=== PATIENT | male | born 1970 | race Caucasian/White ===

== ENCOUNTER 2021-06-06 00:02 | Emergency (ER) | payer OTHER, SELFPAY ==
--- NOTE | ~2021-06-06 | XR_ITS ---
EXAMINATION: XR HUMERUS, RIGHT CLINICAL INFORMATION: Fall pain COMPARISON: None TECHNIQUE: AP and lateral views of the right humerus. FINDINGS: Comminuted fracture of the right femoral neck with mild degree of impaction and angulation. The shoulder was not well visualized on this x-ray, may require correlation with follow-up x-ray of the shoulder for better visualization of the glenoid process. Included adjacent ribs are intact. XR/XR humerus RT IMPRESSION: Comminuted impacted mildly angulated fracture of the right humeral neck. Consider correlation with follow-up x-ray or CT scan of the shoulder recommended to better visualize the glenoid scapula
[2021-06-06 00:10] VITALS: BP 130/80; PULSE 80; O2SAT 98
[2021-06-06 00:14] VITALS: BP 112/76; PULSE 74; RESP 16; TEMP 36.6; O2SAT 95; BMI 25.7
--- NOTE | 2021-06-06 00:33 | ED_ITS ---
HPI - Fall General Chief Complaint: Fall Stated Complaint: FALL,RIGHT ARM PAIN Time Seen by Provider: 06/06/21 00:31 Source: patient Limitations: altered mental status (Intoxication) History of Present Illness HPI Narrative: This is a 51-year-old male who admits that he is an alcoholic, admits intoxication tonight with a false well as marijuana. The patient said he went to go urinate outside because he said the only bathroom inside was occupied, and he thinks he may have slipped on some ice, fell directly on his right side, injuring his right upper arm. Denies hitting his head. Denies any neck pain. Denies any chest wall pain or shortness of breath. Denies abdominal pain. Denies any back injury or injury to his lower extremities. He denies any numbness or tingling or weakness in his right arm or hand. Pain is moderately s evere, achy, worse with any attempted arm movement Related Data Previous Rx's Medication Instructions Recorded ibuprofen 600 mg tablet 600 mg PO Q6H PRN #30 tab 06/06/21 oxycodone-acetaminophen 7.5 mg-325 1 tab PO Q6H PRN #12 tab 06/06/21 mg tablet (Percocet) Allergies Allergy/AdvReac Type Severity Reaction Status Date / Time ragweed pollen [RAGWEED] Allergy Unknown UNKNOWN Verified 06/06/21 00:20 Review of Systems Review of Systems: Yes Other (Somewhat limited by alcohol the skin) Constitutional: Constitutional: Reports no additional constitutional complaint s Eyes: Eyes: Reports no additional eye complaints ENT: Reports system reviewed and no additional complaints, except as documented Cardiovascular: Cardiovascular: Reports no additional cardiovascular complaints Respiratory: Respiratory: Reports no additional respiratory complaints Gastrointestinal: Gastrointestinal: Reports no additional gastrointestinal complaints Musculoskeletal: Musculoskeletal: Reports as per HPI and Denies back pain Neurologic: Reports system reviewed and no additional complaints, except as documented and Denies Sensory deficit (Neuro) Psychiatric: Psychiatric: Reports no additional psychiatric complaints [facility] Social History Social History Advance Directives: No Advance Directives Information Provided: No Physical Exam Vital Signs: Vital Signs: Last Vital Signs Temp 97.8 F 06/06/21 00:14 Pulse 74 06/06/21 00:14 Resp 16 06/06/21 00:14 BP 112/76 06/06/21 00:14 Pulse Ox 95 06/06/21 00:14 Body Mass Index 25.7 Const: General: cooperative, no acute distress and alert Orientation/consciousness: patient oriented x3 HENMT: Head: Yes normal to inspection Eyes: General: appearance normal, both eyes and all related structures Eyelids: Yes eyelids normal Conjunctivae: conjunctivae normal Pupils: Equal, round and reactive pupils present Neck: Neck: Yes normal visual inspection and Yes supple Chest: Chest palpation & inspection: normal inspection of the chest Resp: Effort & Inspection: normal respiratory effort Auscultation: clear to auscultation bilaterally Cardio: Rate: regular rate Rhythm: regular rhythm Heart sounds: S1 normal heart sound present, S2 normal heart sound present, no gallops, no murmurs and no rubs GI: Palpation (GI): Soft to palpation, nontender and Other GI palpation findings present (Non-distended) Auscultation: normal bowel sounds Skin: General skin exam: no rashes or lesions noted Neuro: General: patient oriented x3, no focal motor deficits and CN's II-XI intact bilaterally Cranial nerves: Yes Equal, round and reactive pupils present Cognition (Neuro): normal cognition Motor exam (neuro): 5/5 motor strength present throughout Sensory Exam: No Sensory deficit (Neuro) Extrem: Other: Right clavicle intact, no tenderness over right AC joint, tenderness over right humeral head and right and humerus down to the elbow. Right hand is neurovascular intact General: Yes normal to inspection and Yes no pedal edema Psych: Appearance: grossly normal Affect: normal affect MDM - Fall MDM Narrative Medical decision making narrative: Patient with an impacted fracture of the right humerus at the humeral neck. Patient's right shoulder placed in an immobilizer and patient is being treated with ibuprofen and oxycodone. Patient is intoxicated and does not have a ride home, is going to remain in the ED until the morning when he will be discharged with orthopedic follow-up. Imaging Data Right humerus x-ray: Radiologist's impression: IMPRESSION: Comminuted impacted mildly angulated fracture of the right humeral neck. ? Consider correlation with follow-up x-ray or CT scan of the shoulder recommended to better visualize the glenoid scapula Discharge Plan Discharge Clinical Impression: Fracture of neck of right humerus Patient Disposition: Home, Self-Care Instructions: Arm Fracture in Adults (ED) Prescriptions: New ibuprofen 600 mg tablet 600 mg PO Q6H PRN (Reason: pain) Qty: 30 RF: 0 oxycodone-acetaminophen [Percocet] 7.5-325 mg tablet 1 tab PO Q6H PRN (Reason: pain) Qty: 12 RF: 0 Referrals: Jakob Wu MD [Physician] - 3 days
[2021-06-06] MEDS: Ibuprofen 600 MG TABLET PO (01:17)
[2021-06-06] MEDS: oxyCODONE HCl Immed Release 5 MG TABLET PO (01:18)
--- NOTE | 2021-06-06 01:29 | PC.NURSE ---
pt c/o right arm/shoulder pain after falling tonight. MD in room for eval. Pt medicated as per emar for pain. Pt awake, respirations easy, n/l. skin w/d.
[2021-06-06 02:00] VITALS: RESP 18; O2SAT 98
--- NOTE | 2021-06-06 02:11 | PC.NURSE ---
pt sleeping, wakes to voice and denies complaints at this time. respirations easy, n/l. skin w/d. pt denies complaints,
[2021-06-06 04:00] VITALS: BP 118/74; PULSE 84; RESP 16; O2SAT 97
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
== END 2021-06-06 06:17 | disposition home or self-care (01) ==
PROVIDERS: Emergency Provider Emergency Medicine; PCP Internal Medicine
DX: S42.211A Unspecified displaced fracture of surgical neck of right humerus, initial encounter for closed fracture (principal); F10.20 Alcohol dependence, uncomplicated; W00.0XXA Fall on same level due to ice and snow, initial encounter; Y93.9 Activity, unspecified; Y92.9 Unspecified place or not applicable; Y99.9 Unspecified external cause status; Y90.9 Presence of alcohol in blood, level not specified; Z79.899 Other long term (current) drug therapy
CPT/HCPCS: 73060; 99283; 99284

== ENCOUNTER 2021-06-22 07:17 | Outpatient (REF) | payer MEDICARE, MEDICAID, SELFPAY | END 2021-06-22 07:18 | disposition home or self-care (01) | LOC: HO.HOSX 07:17 | PROVIDERS: Visit Provider Physician Assistant | DX: Z13.89 Encounter for screening for other disorder (principal) ==

== ENCOUNTER 2021-06-24 06:30 | Outpatient (REF) | payer MEDICARE, SELFPAY ==
--- NOTE | ~2021-06-24 | XR_ITS ---
EXAMINATION: XR SHOULDER, RIGHT CLINICAL INFORMATION: Comminuted impacted fracture right humeral neck. Follow-up. COMPARISON: Radiographs right humerus 06/06/2021. TECHNIQUE: Right humerus is imaged in frontal and lateral views. FINDINGS: Proximal right humeral fracture is less distinct. There is no change in alignment. Abundant callus formation is present on the lateral side. The acromioclavicular alignment is normal. No bony destructive process. No dislocation. XR/XR shoulder RT min 2V IMPRESSION: Healing fracture proximal right humerus. No change in alignment.
== END 2021-06-24 06:31 | disposition home or self-care (01) ==
LOC: HO.HOSX 06:30
PROVIDERS: Visit Provider Physician Assistant
DX: S42.201A Unspecified fracture of upper end of right humerus, initial encounter for closed fracture (principal); X58.XXXA Exposure to other specified factors, initial encounter; Y93.9 Activity, unspecified; Y92.9 Unspecified place or not applicable; Y99.9 Unspecified external cause status
CPT/HCPCS: 73030; 99202

== ENCOUNTER 2021-07-22 11:38 | Outpatient (REF) | payer MEDICARE, MEDICAID, SELFPAY | END 2021-07-22 11:39 | disposition home or self-care (01) | LOC: HO.HOSX 11:38 | PROVIDERS: Visit Provider Physician Assistant | DX: Z13.89 Encounter for screening for other disorder (principal) ==

== ENCOUNTER 2023-03-23 21:31 | Inpatient (IN) | payer OTHER, SELFPAY ==
[2023-03-23 21:35] VITALS: BP 164/80; PULSE 66; RESP 17; TEMP 36.4; O2SAT 97; BMI 23.7
--- NOTE | 2023-03-23 21:40 | MHC.CARE ---
Addendum entered by Janeen Frederick 03/23/23 21:51: NOTE PER [facility]; PT IS VOLUNTARY. PT WAS PRESENTED TO [facility] AND ADMISSION IS PENDING FOR 03/24/23. Original Note: [facility] called in expect. Pt is an inpatient bed search. He was assessed via [facility] due to endorsing SI with plan to be shot by police. Pt reported has been threatening peers and getting into arguments. Pt has a history of cannabis, cocaine and alcohol use. Pt is believed to be under the influence. He is on section 12 via [facility].
[2023-03-23 21:58] LABS: MANUAL DIFF FLAG NO
[2023-03-23 22:00] LABS: Appearance Urine Clear; Color Urine Dark Yellow; Glucose Urine UA Negative (Negative); Leukocyte Esterase Urine Trace (Negative); Nitrite Urine Negative (Negative); UMIC TRIGGER UA YES; Urine Blood Negative (Negative); Urine Ketones Trace mg/dL (Negative); Urine Protein 30 (1+) mg/dL (Neg-Trace)
[2023-03-23 22:03] LABS: Basophils Absolute Auto 0.1 X10*3/uL (0.0-0.2); Eosinophils Absolute Auto 0.1 X10*3/uL (0.0-0.4); Eosinophils Percent Auto 1.7 % (0-4); Hematocrit 41.4 % (42.0-52.0); Hemoglobin 14.7 g/dl (14.0-18.0); Imm Gran Abs Auto 0.03 X10*3/uL (0.00-0.03); Imm Gran Pct Auto 0.5 % (0.0-0.4); Lymphocytes Absolute Auto 1.6 X10*3/uL (1.2-4.9); Lymphocytes Percent Auto 28.5 % (20-40); Mean Corpuscular HGB Conc 35.5 g/dl (31.0-36.0); Mean Corpuscular Hemoglobin 34.5 pg (27.0-33.0); Mean Corpuscular Volume 97.2 fL (80.0-98.0); Mean Platelet Volume 10.5 fL (9.4-12.4); Monocytes Absolute Auto 0.8 X10*3/uL (0.1-1.2); Monocytes Percent Auto 14.5 % (2-11); Neutrophils Absolute Auto 3.1 x10*3/uL (2.0-8.3); Neutrophils Percent Auto 53.8 % (45-73); Platelet Count 119 X10*3/uL (160-400); Red Blood Count 4.26 X10*6/uL (4.60-5.80); White Blood Count 5.7 X10*3/uL (4.8-10.8)
[2023-03-23 22:05] LABS: Bacteria Urine None Seen (None Seen); Hyaline Casts Urine 0-2 /LPF (0-2); RBC Urine 0-2 /HPF (0-2); Squamous Epithelial Cell Urine 0-2 /HPF (0-2); WBC Urine 0-5 /HPF (0-5)
[2023-03-23 22:12] LABS: Amphetamine Screen Urine Not Detected (Not Detect); Barbiturates, Urine Not Detected (Not Detect); Benzodiazepines Screen Urine Not Detected (Not Detect); Cannabinoid Screen Urine POSITIVE (Not Detect); Cocaine Screen Urine POSITIVE (Not Detect); Fentanyl, urine Not Detected (Not Detect); Opiate Screen Urine Not Detected (Not Detect); Phencyclidine Screen Urine Not Detected (Not Detect)
[2023-03-23 22:20] LABS: Alanine Aminotransferase 97 U/L (0-40); Albumin Level 4.4 g/dL (3.5-5.0); Alkaline Phosphatase 126 U/L (39-117); Anion Gap 16 (12-20); Aspartate Amino Transferase 122 U/L (5-37); Bilirubin Total 1.7 mg/dL (0.0-1.0); Blood Urea Nitrogen 8 mg/dL (9-16); Calcium 9.3 mg/dL (8.4-10.2); Carbon Dioxide 25 mmol/L (22-29); Chloride 100 mmol/L (96-108); Creatinine Clr Calc Pharmacy 131.4; Estimated Glomerular Filt Rate > 60; Ethanol 74 mg/dL; Glucose Random 86 mg/dL (60-115); Potassium 4.2 mmol/L (3.3-5.1); Sodium 137 mmol/L (135-145); Total Protein 7.4 g/dL (6.5-8.0)
--- NOTE | 2023-03-23 23:56 | ED_ITS ---
HPI - General Adult General Chief complaint: General Medical Stated complaint: From [facility] seeking detox for alcoholism Time Seen by Provider: 03/23/23 23:56 Source: patient Mode of arrival: EMS Limitations: no limitations History of Present Illness HPI narrative: Patient alcoholic and uses cocaine with depression went to [facility] for depression increased suicidal feeling assessed there and sent patient here for inpatient placement Related Data Home Medications Medication Instructions Recorded Confirmed clonazepam 1 mg tablet 1 mg PO TID PRN Anxiety 03/23/23 03/23/23 risperidone 2 mg tablet 2 mg PO BEDTIME 03/23/23 03/23/23 Allergies Allergy/AdvReac Type Severity Reaction Status Date / Time ragweed pollen [RAGWEED] Allergy Unknown UNKNOWN Verified 06/24/21 10:27 Review of Systems 2 Review of Systems: Yes all other systems are reviewed and are negative [facility] Social History Social History Advance Directives: No Advance Directives Information Provided: No Physical Exam ED Vital Signs: Vital Signs - 24 hr 03/23/23 21:35 03/24/23 01:05 Temperature 97.6 F 97.6 F Pulse Rate 66 62 Respiratory Rate 17 16 Blood Pressure 164/80 H 159/84 H Pulse Oximetry 97 95 Oxygen Delivery Method Room Air Room Air BMI result Body Mass Index 23.7 Appearance: Alert. Oriented X3. No acute distress. Eyes: PERRLA, No Nystagmus ENT: Pharynx normal. Oral Mucosa moist Neck: Normal inspection. Neck supple. CVS: Normal heart rate and rhythm. Pulses normal. Respiratory: No respiratory distress. Equal air entry bilateral, no wheezing/rales/rhonchi Abdomen: Soft and nontender. Bowel sounds are present, no mass palpable, no CVA tenderness Skin: Skin warm and dry. Normal skin color. Normal skin turgor. Extremities: No lower extremity edema. No calf tenderness psych: Feel depressed denies current SI or HI or delusions or hallucination Neuro: Oriented X 3. No motor deficit. No sensory deficit.No cerebellar signs , cranial nerves II-XII intact Medications Administered Generic Name Dose Route Start Last Admin Trade Name Freq PRN Reason Stop Dose Admin Lorazepam 2 mg 03/23/23 23:57 03/24/23 00:13 Lorazepam 1 Mg Tablet PO 2 mg RQ4H WHILE AWAKE PRN Administration Alcohol Withdrawal Medical Decision Making Medical Decision Making [facility] Narrative: Patient had alcoholic and cocaine use came from [facility] with depression and SI feeling for inpatient bed placement Lab Data [facility] Lab Attestation statement: I reviewed the patient's lab results. 03/23/23 21:52 03/23/23 21:52 Labs: Lab Results 03/23/23 03/24/23 Range/Units 21:52 00:10 WBC 5.7 (4.8-10.8) X10*3/uL RBC 4.26 L (4.60-5.80) X10*6/uL Hgb 14.7 (14.0-18.0) g/dl Hct 41.4 L (42.0-52.0) % MCV 97.2 (80.0-98.0) fL MCH 34.5 H (27.0-33.0) pg MCHC 35.5 (31.0-36.0) g/dl RDW 14.0 (11.0-16.0) % Plt Count 119 L (160-400) X10*3/uL MPV 10.5 (9.4-12.4) fL Immature Gran % (Auto) 0.5 H (0.0-0.4) % Neut % (Auto) 53.8 (45-73) % Lymph % (Auto) 28.5 (20-40) % [place] % (Auto) 14.5 H (2-11) % Eos % (Auto) 1.7 (0-4) % Baso % (Auto) 1.0 (0-2) % Lymph # (Auto) 1.6 (1.2-4.9) X10*3/uL [place] # (Auto) 0.8 (0.1-1.2) X10*3/uL Eos # (Auto) 0.1 (0.0-0.4) X10*3/uL Baso # (Auto) 0.1 (0.0-0.2) X10*3/uL Abs Immat Gran (auto) 0.03 (0.00-0.03) X10*3/uL Absolute Neuts (auto) 3.1 (2.0-8.3) x10*3/uL Absolute Nucleated RBC 0.000 (0.0-0.012) X10*3/uL Nucleated RBC % (auto) 0.0 (0.0-0.2) /100WBC Sodium 137 (135-145) mmol/L Potassium 4.2 (3.3-5.1) mmol/L Chloride 100 (96-108) mmol/L Carbon Dioxide 25 (22-29) mmol/L Anion Gap 16 (12-20) BUN 8 L (9-16) mg/dL Creatinine 0.70 (0.5-1.4) mg/dL Estim Creat Clear Calc 131.4 Estimated GFR > 60 Random Glucose 86 (60-115) mg/dL Calcium 9.3 (8.4-10.2) mg/dL Total Bilirubin 1.7 H (0.0-1.0) mg/dL AST 122 H (5-37) U/L ALT 97 H (0-40) U/L Alkaline Phosphatase 126 H (39-117) U/L Total Protein 7.4 (6.5-8.0) g/dL Albumin 4.4 (3.5-5.0) g/dL Urine Color Dark Yellow Urine Appearance Clear Urine pH 6.0 (5.0-9.0) Ur Specific [place] 1.020 (1.005-1.025) Urine Protein 30 (1+) H (Neg-Trace) mg/dL Urine Glucose (UA) Negative (Negative) mg/dL Urine Ketones Trace (Negative) mg/dL Urine Blood Negative (Negative) Urine Nitrite Negative (Negative) Ur Leukocyte Esterase Trace H (Negative) Urine RBC 0-2 (0-2) /HPF Urine WBC 0-5 (0-5) /HPF Ur Squamous Epith Cells 0-2 (0-2) /HPF Urine Bacteria None Seen (None Seen) Hyaline Casts 0-2 (0-2) /LPF Urine Opiates Screen Not Detected (Not Detect) Urine Fentanyl Screen Not Detected (Not Detect) Ur Barbiturates Screen Not Detected (Not Detect) Ur Phencyclidine Scrn Not Detected (Not Detect) Ur Amphetamines Screen Not Detected (Not Detect) U Benzodiazepines Scrn Not Detected (Not Detect) Urine Cocaine Screen POSITIVE H (Not Detect) U Marijuana (THC) Screen POSITIVE H (Not Detect) Ethyl Alcohol 74 mg/dL COVID-19 ([facility]) Negative (Negative) COVID-19 Clin Com See Note Discharge Plan Discharge Clinical Impression: Polysubstance abuse, Alcohol abuse, Depression with suicidal ideation Patient Disposition: Still a Patient Prescriptions: No Action clonazepam 1 mg tablet 1 mg PO TID PRN (Reason: Anxiety) risperidone 2 mg tablet 2 mg PO BEDTIME
[2023-03-24] MEDS: LORazepam 1 MG TABLET 2 MG PO (00:13)
[2023-03-24 00:31] LABS: COVID-19 Test Negative (Negative); IDNOW Serial# BCCEAD1C
[2023-03-24 01:05] VITALS: BP 159/84; PULSE 62; RESP 16; TEMP 36.4; O2SAT 95
--- NOTE | 2023-03-24 05:37 | PC.NURSE ---
Patient slept through the night, no distress observed/reported, asymptomatic of actual ETOH withdrawal but Ativan 2 mg PO administered at 0013 for comfort with + effect, behavior non concerning, disposition per [facility] is voluntary inpatient bed search, labs completed/resulted, VSS, will continue to monitor.
--- NOTE | 2023-03-24 09:21 | ECG_ITS ---
Test Reason : check qt interval Blood Pressure : / mmHG Vent. Rate : 054 BPM Atrial Rate : 054 BPM P-R Int : 154 ms QRS Dur : 086 ms QT Int : 490 ms P-R-T Axes : 032 027 054 degrees QTc Int : 464 ms Sinus bradycardia Septal infarct , age undetermined Abnormal ECG When compared with ECG of 13-JAN-2015 14:02, Septal infarct is now Present Referred By: Keyonna Murphy Electronically Signed By:DIONISIO GRIMES
[2023-03-24 09:27] VITALS: BP 142/79; PULSE 53; TEMP 37; O2SAT 98
[2023-03-24 16:03] VITALS: BP 154/81; PULSE 58; RESP 18; TEMP 36.9; O2SAT 97
[2023-03-24] MEDS: LORazepam 1 MG TABLET PO (16:14)
--- NOTE | 2023-03-24 16:24 | PC.NURSE ---
Ciwa score 7. 1mg Lorazapam given PO. Augusto is denying any pain. Appetite good. No behavioral concerns.
[2023-03-24 17:33] VITALS: BP 160/106; PULSE 63; RESP 18; TEMP 36.1; O2SAT 99
--- NOTE | 2023-03-24 18:51 | PC.ADMIT ---
Pt is a 53 year old man coming [place] [facility] [place] verbalizing to staff multiple times about wanting to be shot by police. During admission assessment, pt denied all SI/HI but does report having an extensive mental health history. He reports currently living in a senior living and having lots of outpatient support via providers, therapists and more. He reports feeling safe inside the hospital and out in the community. He was willing and compliant during admission interview. He signed a CV, safety check done by JOAO and Ari Fitzgerald RN. He was able to contract for safety and verbalized being able to confide in staff.
[2023-03-24] MEDS: risperiDONE 2 MG TABLET PO (20:52)
[2023-03-24 21:19] VITALS: BP 165/72; PULSE 71; RESP 18; TEMP 36.7; O2SAT 98
[2023-03-25 08:13] LABS: Estimated Average Glucose 85 mg/dL; Hemoglobin A1c % 4.6 % (<6.0)
[2023-03-25 08:23] LABS: Cholesterol 284 mg/dL (<200); HDL Cholesterol 141 mg/dL (>40); LDL Cholesterol Calculated 129 mg/dL (<100); Magnesium 1.9 mg/dL (1.6-2.6); Triglycerides 72 mg/dL (<150)
[2023-03-25 08:39] LABS: Free T4 (Free Thyroxine) 0.88 ng/dL (0.71-1.85); Thyroid Stimulating Hormone 1.52 uIU/mL (0.32-4.0)
[2023-03-25 08:45] VITALS: BP 155/87; PULSE 87; RESP 18; TEMP 35.8; O2SAT 98
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
[2023-03-25 08:54] LABS: Folate 13.4 ng/mL (> or = 4.0); Vitamin B12 425 pg/mL (200-900)
[2023-03-25] MEDS: Folic Acid 1 MG TABLET PO (08:57)
[2023-03-25] MEDS: Thiamine HCL 100 MG TABLET PO (08:57)
[2023-03-25] MEDS: Multivitamin TABLET 1 TAB PO (08:58)
[2023-03-25] MEDS: LORazepam 1 MG TABLET PO (09:22)
[2023-03-25 18:00] VITALS: BP 128/74; PULSE 85; RESP 16; TEMP 36.6; O2SAT 97
[2023-03-25] MEDS: risperiDONE 2 MG TABLET PO (19:39)
--- NOTE | 2023-03-26 05:47 | P.PNPSI_ITS ---
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 Medication Compliance: Yes Side effects from medications: No Attending Groups: Intermittent Review of Systems Acute medical concerns: No Medical Review of Systems: unchanged Mental Status Exam Mental Status Exam Patient Appearance: Appropriate Patient Orientation: Person, Place, Time and Situation Level of Consciousness: Alert Patient Behavior: Talkative Mood Description: Calm Affect Description: Calm Patient Cognition Impaired: No Ability to Follow Directions: Good Speech Pattern: Spontaneous Speech Memory Description: Episodic Impaired Hallucinations: None Delusions: Not Present Thought Process: Distracted Thought Content: positive for Malone and positive for Circumstantial Depressive Symptoms: Thoughts of /Suicide (denies) Judgement: Good Diagnostics Vital Signs (24Hr): Vital Signs - 24 hr 03/25/23 08:45 03/25/23 18:00 Temperature 96.5 F L 97.8 F Pulse Rate 87 85 Respiratory Rate 18 16 Blood Pressure 155/87 H 128/74 Pulse Oximetry 98 97 Oxygen Delivery Method Room Air Room Air BMI result Body Mass Index 23.7 Labs 03/23/23 21:52 03/23/23 21:52 Labs: Laboratory Results - last 48 hr 03/25/23 07:48 Estimat Average Glucose 85 Hemoglobin A1c % 4.6 Magnesium 1.9 Triglycerides 72 Cholesterol 284 H LDL Cholesterol, Calc 129 H HDL Cholesterol 141 Vitamin B12 425 Folate 13.4 TSH 1.52 Free T4 0.88 Medications Medications Current Medications Acetaminophen (Acetaminophen 325 Mg Tablet) 650 mg PO Q6H PRN PRN Reason: Headache/Pain Mild Scale (1-3) Al Hydroxide/Mg Hydroxide (Magnesium Hydrox/Alum Hydrox 30 Ml Oral.Susp) 30 ml PO Q6H PRN PRN Reason: Heartburn/Nausea Folic Acid (Folic Acid 1 Mg Tablet) 1 mg PO DAILY PRECIOUS Last Admin: 03/25/23 08:57 Dose: 1 mg Hydroxyzine HCl (Hydroxyzine Hcl 25 Mg Tablet) 25 mg PO Q6H PRN PRN Reason: Anxiety Lorazepam (Lorazepam 1 Mg Tablet) 2 mg PO RQ4H WHILE AWAKE PRN PRN Reason: Alcohol Withdrawal Last Admin: 03/24/23 00:13 Dose: 2 mg Lorazepam (Lorazepam 1 Mg Tablet) 1 mg PO Q2H PRN PRN Reason: CIWA 6-10 Last Admin: 03/25/23 09:22 Dose: 1 mg Lorazepam (Lorazepam 1 Mg Tablet) 2 mg PO Q2H PRN PRN Reason: CIWA 11+ Magnesium Hydroxide (Milk Of Magnesia 30 Ml Oral.Susp) 30 ml PO DAILY PRN PRN Reason: Constipation Multivitamins/Vitamin C (Multivitamin Tablet) 1 tab PO DAILY PRECIOUS Last Admin: 03/25/23 08:58 Dose: 1 tab Risperidone (Risperidone 2 Mg Tablet) 2 mg PO BEDTIME PRECIOUS Last Admin: 03/25/23 19:39 Dose: 2 mg Thiamine HCl (Thiamine Hcl 100 Mg Tablet) 100 mg PO DAILY PRECIOUS Last Admin: 03/25/23 08:57 Dose: 100 mg Trazodone HCl (Trazodone Hcl 50 Mg Tablet) 50 mg PO BEDTIME MRX1 PRN PRN Reason: Insomnia Allergies Allergies Allergy/AdvReac Type Severity Reaction Status Date / Time ragweed pollen [RAGWEED] Allergy Unknown UNKNOWN Verified 06/24/21 10:27 Assessment & Plan Assessment & Plan (1) Schizoaffective disorder: Status: Acute Code(s): F25.9 - Schizoaffective disorder, unspecified (2) Alcohol abuse: Status: Acute Code(s): F10.10 - Alcohol abuse, uncomplicated (3) Polysubstance abuse: Status: Acute Code(s): F19.10 - Other psychoactive substance abuse, uncomplicated Plan 03/26: Discontinue CIWA Discontinue Ativan Collateral contact with OP teams TDN for 03/29. Informed Consent: understands Reason for continued inpatient stay Substantial Risk for: rapid decompensation Time Spent With Patient Time: Total time managing care of this patient today ____ minutes.
[2023-03-26] MEDS: Multivitamin TABLET 1 TAB PO (08:59)
[2023-03-26] MEDS: Thiamine HCL 100 MG TABLET PO (08:59)
[2023-03-26 09:00] VITALS: BP 130/75; PULSE 60; RESP 18; TEMP 36.8; O2SAT 97
[2023-03-26] MEDS: Folic Acid 1 MG TABLET PO (09:00)
--- NOTE | 2023-03-26 13:55 | PC.NURSE ---
Pt signed a 3 day notice on 03/26/23 due to resolve on Monday03/29/23
[2023-03-26] MEDS: risperiDONE 2 MG TABLET PO (19:58)
[2023-03-26 20:09] VITALS: BP 128/78; PULSE 79; RESP 16; TEMP 36.6; O2SAT 97
[2023-03-27 09:22] VITALS: BP 107/70; PULSE 78; RESP 16; TEMP 36.8; O2SAT 98
[2023-03-27] MEDS: Multivitamin TABLET 1 TAB PO (09:29)
[2023-03-27] MEDS: Thiamine HCL 100 MG TABLET PO (09:29)
[2023-03-27] MEDS: Folic Acid 1 MG TABLET PO (09:29)
--- NOTE | 2023-03-27 16:00 | P.PNPSI_ITS ---
Subjective Subjective Date of Service: 03/27/23 Reason For Visit: Depression,Alcohol,Substance use disorder Interim History: Met with patient; discussed with team Patient reports that he is doing much better and feels back to his regular self. Reports that withdrawal is completely over. Denies AVH or paranoid ideations; Denies any SI and says that his mood is good. Patient said he signed a 3 day notice and would like to return back to [facility]. Patient reports that he was getting belligerent with other people at the [place] [facility] which he says was due to relapse with alcohol. He says that is all over with. Patient reports nightmares which he says are chronic but does not want any medication for; referenced some history of trauma but no details [facility] did call and left message with social media content specialist saying they were concerned given that patient was trying to provoke other people to fight him. Diagnostics Vital Signs (24Hr): Vital Signs - 24 hr 03/26/23 20:09 03/27/23 09:22 Temperature 97.9 F 98.3 F Pulse Rate 79 78 Respiratory Rate 16 16 Blood Pressure 128/78 107/70 Pulse Oximetry 97 98 Oxygen Delivery Method Room Air Room Air BMI result Body Mass Index 23.7 Labs 03/23/23 21:52 03/23/23 21:52 Medications Medications Current Medications Acetaminophen (Acetaminophen 325 Mg Tablet) 650 mg PO Q6H PRN PRN Reason: Headache/Pain Mild Scale (1-3) Al Hydroxide/Mg Hydroxide (Magnesium Hydrox/Alum Hydrox 30 Ml Oral.Susp) 30 ml PO Q6H PRN PRN Reason: Heartburn/Nausea Folic Acid (Folic Acid 1 Mg Tablet) 1 mg PO DAILY [facility] Last Admin: 03/27/23 09:29 Dose: 1 mg Hydroxyzine HCl (Hydroxyzine Hcl 25 Mg Tablet) 25 mg PO Q6H PRN PRN Reason: Anxiety Magnesium Hydroxide (Milk Of Magnesia 30 Ml Oral.Susp) 30 ml PO DAILY PRN PRN Reason: Constipation Multivitamins/Vitamin C (Multivitamin Tablet) 1 tab PO DAILY [facility] Last Admin: 03/27/23 09:29 Dose: 1 tab Risperidone (Risperidone 2 Mg Tablet) 2 mg PO BEDTIME [facility] Last Admin: 03/26/23 19:58 Dose: 2 mg Risperidone (Risperidone 1 Mg Tablet) 1 mg PO BID PRN PRN Reason: agitation Thiamine HCl (Thiamine Hcl 100 Mg Tablet) 100 mg PO DAILY PRECIOUS Last Admin: 03/27/23 09:29 Dose: 100 mg Trazodone HCl (Trazodone Hcl 50 Mg Tablet) 50 mg PO BEDTIME MRX1 PRN PRN Reason: Insomnia Allergies Allergies Allergy/AdvReac Type Severity Reaction Status Date / Time ragweed pollen [RAGWEED] Allergy Unknown UNKNOWN Verified 06/24/21 10:27 Assessment & Plan Assessment & Plan (1) Schizoaffective disorder: Status: Acute Code(s): F25.9 - Schizoaffective disorder, unspecified (2) Alcohol abuse: Status: Acute Code(s): F10.10 - Alcohol abuse, uncomplicated (3) Polysubstance abuse: Status: Acute Code(s): F19.10 - Other psychoactive substance abuse, uncomplicated Plan 03/26: Discontinue CIWA Discontinue Ativan Collateral contact with OP teams TDN for 03/29. 03/27 Patient reports that he is doing much better and feels back to his regular self. Reports that withdrawal is completely over. Denies AVH or paranoid ideations; Denies any SI and says that his mood is good. Patient said he signed a 3 day notice and would like to return back to [facility]. Patient reports that he was getting belligerent with other people at the [place] [facility] which he says was due to relapse with alcohol. He says that is all over with. [facility] did call and left message with social media content specialist saying they were concerned given that patient was trying to provoke other people to fight him. -currently patient not interested in more medication management; will revisit and offer MAT for alcohol abuse Plan: Three day notice Continue current medication regimen Discuss with [place] [facility] Patient educated on: diagnosis, medication risk/benefits and substance abuse Informed Consent: understands Reason for continued inpatient stay Substantial Risk for: stable for discharge Time Spent With Patient Time: Total time managing care of this patient today ____ minutes.
[2023-03-27 18:00] VITALS: BP 128/82; PULSE 75; RESP 16; TEMP 36.6; O2SAT 97
[2023-03-27] MEDS: traZODone HCL 50 MG TABLET PO (19:17)
[2023-03-27] MEDS: risperiDONE 2 MG TABLET PO (19:17)
[2023-03-28] MEDS: hydrOXYzine HCL 25 MG TABLET PO ×2 (00:28→20:09)
[2023-03-28] MEDS: risperiDONE 1 MG TABLET PO (00:28)
[2023-03-28 08:54] VITALS: BP 117/61; PULSE 63; RESP 16; TEMP 36.6; O2SAT 97
[2023-03-28] MEDS: Thiamine HCL 100 MG TABLET PO (09:24)
[2023-03-28] MEDS: Folic Acid 1 MG TABLET PO (09:24)
[2023-03-28] MEDS: Multivitamin TABLET 1 TAB PO (09:24)
--- NOTE | 2023-03-28 10:02 | HO.PSYCHPN ---
Subjective Subjective Date of Service: 03/28/23 Reason For Visit: Depression,Alcohol,Substance use disorder Interim History: met with patient; discussed with team Patient reports mood remains better; no SI; no AVH. Has decided that he will pursue sobriety after all and talked with his outpatient team at [facility]. Patient says he is going to do 30 meetings in 30 days which is in agreement he has with [facility] staff. Patient asked for Risperdal bedtime dose to be increased to 3 mg which he said will help him since he is going to quit drinking. Also appreciates hydroxyzine which he asks for to be continued. Patient feeling ready for discharge Mental Status Exam Mental Status Exam Narrative: Pt is alert and oriented; behavior is cooperative, friendly and calm; patient is not in distress; dressed in casual attire with adequate hygiene; mood is described as good and affect congruent; eye contact appropriate; Speech is normal rate, volume and prosody and not pressured; no psychomotor agitation/retardation present; thought process is organized and goal directed; Thought content is on tx; otherwise pertinent to relevant topics and without any delusional content, paranoid ideations or grandiosity; denies any SI/HI. There is no evidence of perceptual disturbance. Patients insight and judgment appear intact. Diagnostics Vital Signs (24Hr): Vital Signs - 24 hr 03/27/23 18:00 Temperature 97.8 F Pulse Rate 75 Respiratory Rate 16 Blood Pressure 128/82 Pulse Oximetry 97 Oxygen Delivery Method Room Air BMI result Body Mass Index 23.7 Labs 03/23/23 21:52 03/23/23 21:52 Medications Medications Current Medications Acetaminophen (Acetaminophen 325 Mg Tablet) 650 mg PO Q6H PRN PRN Reason: Headache/Pain Mild Scale (1-3) Al Hydroxide/Mg Hydroxide (Magnesium Hydrox/Alum Hydrox 30 Ml Oral.Susp) 30 ml PO Q6H PRN PRN Reason: Heartburn/Nausea Folic Acid (Folic Acid 1 Mg Tablet) 1 mg PO DAILY [facility] Last Admin: 03/28/23 09:24 Dose: 1 mg Hydroxyzine HCl (Hydroxyzine Hcl 25 Mg Tablet) 25 mg PO Q6H PRN PRN Reason: Anxiety Last Admin: 03/28/23 00:28 Dose: 25 mg Magnesium Hydroxide (Milk Of Magnesia 30 Ml Oral.Susp) 30 ml PO DAILY PRN PRN Reason: Constipation Multivitamins/Vitamin C (Multivitamin Tablet) 1 tab PO DAILY PRECIOUS Last Admin: 03/28/23 09:24 Dose: 1 tab Risperidone (Risperidone 2 Mg Tablet) 2 mg PO BEDTIME PRECIOUS Last Admin: 03/27/23 19:17 Dose: 2 mg Risperidone (Risperidone 1 Mg Tablet) 1 mg PO BID PRN PRN Reason: agitation Last Admin: 03/28/23 00:28 Dose: 1 mg Thiamine HCl (Thiamine Hcl 100 Mg Tablet) 100 mg PO DAILY [facility] Last Admin: 03/28/23 09:24 Dose: 100 mg Trazodone HCl (Trazodone Hcl 50 Mg Tablet) 50 mg PO BEDTIME MRX1 PRN PRN Reason: Insomnia Last Admin: 03/27/23 19:17 Dose: 50 mg Allergies Allergies Allergy/AdvReac Type Severity Reaction Status Date / Time ragweed pollen [RAGWEED] Allergy Unknown UNKNOWN Verified 06/24/21 10:27 Assessment & Plan Assessment & Plan (1) Schizoaffective disorder: Status: Acute Code(s): F25.9 - Schizoaffective disorder, unspecified (2) Alcohol abuse: Status: Acute Code(s): F10.10 - Alcohol abuse, uncomplicated (3) Polysubstance abuse: Status: Acute Code(s): F19.10 - Other psychoactive substance abuse, uncomplicated Plan 03/26: Discontinue CIWA Discontinue Ativan Collateral contact with OP teams TDN for 03/29. 03/27 Patient reports that he is doing much better and feels back to his regular self. Reports that withdrawal is completely over. Denies AVH or paranoid ideations; Denies any SI and says that his mood is good. Patient said he signed a 3 day notice and would like to return back to [facility]. Patient reports that he was getting belligerent with other people at the [facility] which he says was due to relapse with alcohol. He says that is all over with. nursing home did call and left message with social work coordinator saying they were concerned given that patient was trying to provoke other people to fight him. -currently patient not interested in more medication management; will revisit and offer MAT for alcohol abuse 03/28 patient decided to pursue sobriety and is going to attend AA meetings. Also ask for Risperdal to be increased at bedtime since he will no longer be using alcohol to cope with stressors. Patient remains eager for discharge tomorrow, feeling safe and ready to go home. Patient's 3 day notice is coming due tomorrow. He returns to [facility] where he has lived for years. Patient is not in imminent risk for harm to self or others and request for discharge honored Plan: Three day notice Increase Risperdal to 3 mg q.h.s. Discuss with [facility] Patient educated on: diagnosis, medication risk/benefits, substance abuse and therapeutic strategies Informed Consent: understands Reason for continued inpatient stay Substantial Risk for: stable for discharge Time Spent With Patient Time: Total time managing care of this patient today ____ minutes.
[2023-03-28 16:48] VITALS: BP 119/65; PULSE 71; TEMP 36.5; O2SAT 98
[2023-03-28 16:54] LABS: Alanine Aminotransferase 98 U/L (0-40); Albumin Level 4.2 g/dL (3.5-5.0); Alkaline Phosphatase 101 U/L (39-117); Aspartate Amino Transferase 62 U/L (5-37); Bilirubin Direct 0.2 mg/dL (0.0-0.5); Bilirubin Total 0.6 mg/dL (0.0-1.0); Total Protein 6.9 g/dL (6.5-8.0)
[2023-03-28] MEDS: risperiDONE 3 MG TABLET PO (20:09)
[2023-03-29 08:43] VITALS: BP 112/67; PULSE 63; RESP 16; TEMP 36.6; O2SAT 99
[2023-03-29] MEDS: Thiamine HCL 100 MG TABLET PO (08:45)
[2023-03-29] MEDS: Folic Acid 1 MG TABLET PO (08:45)
[2023-03-29] MEDS: Multivitamin TABLET 1 TAB PO (08:45)
--- NOTE | 2023-03-29 08:47 | PM.PSYDC ---
DS: Providers Provider Date of Service: 03/29/23 Date of admission: 03/24/23 16:10 Date of discharge: 03/29/23 Primary care physician: Kami Mckeon MD Attending physician on admission: Lanny Maurer Attending physician on discharge: Franck Lynch DS: Diagnosis Discharge Diagnosis (1) Schizoaffective disorder: Status: Acute (2) Alcohol abuse: Status: Acute (3) Polysubstance abuse: Status: Acute DS: Medications Discharge Medications Home Medications: Previous Rx's Medication Instructions Recorded hydroxyzine HCl 25 mg tablet 25 mg PO Q6H PRN Anxiety/insomnia 03/29/23 30 days #90 tabs risperidone 3 mg tablet 3 mg PO BEDTIME 30 days #30 tabs 03/29/23 Mental Status Exam Mental Status Exam Narrative: Pt is alert and oriented; behavior is cooperative, friendly and calm; patient is not in distress; dressed in casual attire with adequate hygiene; mood is described as good and affect congruent; eye contact appropriate; Speech is normal rate, volume and prosody and not pressured; no psychomotor agitation/retardation present; thought process is organized and goal directed; Thought content is on tx; otherwise pertinent to relevant topics and without any delusional content, paranoid ideations or grandiosity; denies any SI/HI. There is no evidence of perceptual disturbance and denies AVH Patients insight and judgment are intact. Data Data Completed and Pending Completed studies during hospitalization [Text1]: 03/23/23 03/24/23 03/25/23 21:52 00:10 07:48 WBC 5.7 RBC 4.26 L Hgb 14.7 Hct 41.4 L MCV 97.2 MCH 34.5 H MCHC 35.5 RDW 14.0 Plt Count 119 L MPV 10.5 Immature Gran % (Auto) 0.5 H Neut % (Auto) 53.8 Lymph % (Auto) 28.5 [place] % (Auto) 14.5 H Eos % (Auto) 1.7 Baso % (Auto) 1.0 Lymph # (Auto) 1.6 [place] # (Auto) 0.8 Eos # (Auto) 0.1 Baso # (Auto) 0.1 Abs Immat Gran (auto) 0.03 Absolute Neuts (auto) 3.1 Absolute Nucleated RBC 0.000 Nucleated RBC % (auto) 0.0 Sodium 137 Potassium 4.2 Chloride 100 Carbon Dioxide 25 Anion Gap 16 BUN 8 L Creatinine 0.70 Estim Creat Clear Calc 131.4 Estimated GFR > 60 Random Glucose 86 Estimat Average Glucose 85 Hemoglobin A1c % 4.6 Calcium 9.3 Magnesium 1.9 Total Bilirubin 1.7 H Direct Bilirubin AST 122 H ALT 97 H Alkaline Phosphatase 126 H Total Protein 7.4 Albumin 4.4 Triglycerides 72 Cholesterol 284 H LDL Cholesterol, Calc 129 H HDL Cholesterol 141 Vitamin B12 425 Folate 13.4 TSH 1.52 Free T4 0.88 Urine Color Dark Yellow Urine Appearance Clear Urine pH 6.0 Ur Specific [place] 1.020 Urine Protein 30 (1+) H Urine Glucose (UA) Negative Urine Ketones Trace Urine Blood Negative Urine Nitrite Negative Ur Leukocyte Esterase Trace H Urine RBC 0-2 Urine WBC 0-5 Ur Squamous Epith Cells 0-2 Urine Bacteria None Seen Hyaline Casts 0-2 Urine Opiates Screen Not Detected Urine Fentanyl Screen Not Detected Ur Barbiturates Screen Not Detected Ur Phencyclidine Scrn Not Detected Ur Amphetamines Screen Not Detected U Benzodiazepines Scrn Not Detected Urine Cocaine Screen POSITIVE H U Marijuana (THC) Screen POSITIVE H Ethyl Alcohol 74 COVID-19 ([facility]) Negative COVID-19 Clin Com See Note 03/28/23 16:37 WBC RBC Hgb Hct MCV MCH MCHC RDW Plt Count MPV Immature Gran % (Auto) Neut % (Auto) Lymph % (Auto) [place] % (Auto) Eos % (Auto) Baso % (Auto) Lymph # (Auto) [place] # (Auto) Eos # (Auto) Baso # (Auto) Abs Immat Gran (auto) Absolute Neuts (auto) Absolute Nucleated RBC Nucleated RBC % (auto) Sodium Potassium Chloride Carbon Dioxide Anion Gap BUN Creatinine Estim Creat Clear Calc Estimated GFR Random Glucose Estimat Average Glucose Hemoglobin A1c % Calcium Magnesium Total Bilirubin 0.6 Direct Bilirubin 0.2 AST 62 H ALT 98 H Alkaline Phosphatase 101 Total Protein 6.9 Albumin 4.2 Triglycerides Cholesterol LDL Cholesterol, Calc HDL Cholesterol Vitamin B12 Folate TSH Free T4 Urine Color Urine Appearance Urine pH Ur Specific [place] Urine Protein Urine Glucose (UA) Urine Ketones Urine Blood Urine Nitrite Ur Leukocyte Esterase Urine RBC Urine WBC Ur Squamous Epith Cells Urine Bacteria Hyaline Casts Urine Opiates Screen Urine Fentanyl Screen Ur Barbiturates Screen Ur Phencyclidine Scrn Ur Amphetamines Screen U Benzodiazepines Scrn Urine Cocaine Screen U Marijuana (THC) Screen Ethyl Alcohol COVID-19 ([facility]) COVID-19 Clin Com DS: Summary Hospital Course Hospital Course: HPI: 53 yo male, [facility] resident, hx of schizoaffective disorder, alcohol use disorder, cannabis use disorder, cocaine use disorder, reportedly attempting to create a situation where he would be shot by police. Reportedly expressing SI, beginning conflicts with peers at his home, antagonize in them and trying to provoke him to fight him due to increasing alcohol consumption. Pt reports daily alcohol, a 25 oz beer and 3-7 nips daily for a while . Reports longest period of sobriety was 4.5 years in his early 20's. Reports current probation (appt to check in 04/07). Asks if he may leave on Monday, states he is mostly compliant with medication regime. Hospital course: Patient calm and appropriate on admission; no SI or HI which he says has fully resolved; he regretfully acknowledged that his problematic behavior, belligerent and provoking others, was due to excessive alcohol consumption and that he does not want to be like that. Patient was continued/restarted on home medication Risperdal. Started on CIWA out with p.r.n. Ativan and patient detoxed from alcohol without incident. Patient remained in good behavioral and impulse control throughout his time in the unit. He was appropriate with peers and staff, social in the milieu. Patient reported that he was in a good mood, depression had abated and he was back to his regular self. Denied any AVH or paranoid ideations. Patient signed a 3 day notice saying he felt back to his regular self and wanted to return to [facility] where he had been living for quite some time. Initially he was ambivalent about sobriety feeling that it helps him cope, however after discussing with staff at alf, he agreed he needed to pursue sobriety much more vigorously and agreed to going to 30 AA meetings in 30 days. Initially patient did not want any medication management however Patient asks for Risperdal to be increased since he was no longer going to be using alcohol as a coping tool. Liver enzymes rechecked and trending towards normal. Patient remained in good behavioral and impulse control, good mood, future oriented and without any SI/HI/AVH. Patient's 3 day notice came due. He was not in imminent risk for harm to self or others and returns to a supportive environment. Request for discharge honored. Status at Discharge Functional status at discharge: independent ambulation Overall status at discharge: patient is back to baseline Time Spent with Patient Time attestation: Total time managing care of this patient today ____ minutes. Time spent: Less than 30 minutes Discharge Plan Discharge Anticipated Discharge Date/Time: 03/29/23 11:30 Patient Disposition: Skilled Nursing Discharge Diagnosis: Schizoaffective disorder depressed type Referrals: [facility] Medication Management w Charlotte Villalobos [Other] - 04/04/23 12:00 pm (Telehealth) [facility] Therapy with Esequiel Kaiser [Other] - 1 Week [facility] Gonzales [Other] - 1 Week Kami Mckeon MD [Primary Care Provider] - 1 Week Discharge Medications: New hydroxyzine HCl 25 mg Tablet 25 mg PO Q6H PRN (Reason: Anxiety/insomnia) 30 Days Qty: 90 1RF Changed risperidone 3 mg tablet 3 mg PO BEDTIME 30 Days Qty: 30 1RF Discontinued clonazepam 1 mg tablet 1 mg PO TID PRN (Reason: Anxiety) Discharge Orders: Discharge Order (Routine); Ordered 03/29/23 Ordered By: Franck Lynch Diet: Regular diet Activity on Discharge: As tolerated Stand Alone Forms: Patient Portal Discharge page Care Plan Goals: Maintain mood and safe behaviors Take medications as prescribed Continue to pursue sobriety Practice coping skills Continue with outpatient providers and reach out to them as needed Health Concerns: Mood stability and behaviors Sobriety Plan of Treatment: Follow up with your PCP, psychiatric provider and other outpatient providers regarding above concerns Take medications as prescribed Assessment: Risk assessment at time of discharge:? Patient was interviewed prior to discharge and found to be fully oriented and without any SI or HI. Patient has insight and demonstrates good judgment in terms of wanting to pursue treatment. Patient is not in imminent risk of harm to self or others and has a safety plan that includes presenting to the closest ER or calling 911 if feeling unsafe.? Patient has been observed closely by nursing and unit staff throughout admission; patient has not engaged in any behaviors that suggest dangerousness to self or others and has demonstrated appropriate behaviors and impulse control
== END 2023-03-29 11:40 | disposition home or self-care (01) | DRG 885 ==
LOC: HO.ED 03-24 06:37 → HO.PM5 03-24 16:21
PROVIDERS: Clinical Nurse Specialist Psychiatric/Mental Health, Adult; Admitting Provider Psychiatry & Neurology Psychiatry; Emergency Provider Internal Medicine; PCP Internal Medicine; Visit Provider Psychiatry & Neurology Psychiatry
DX: F25.1 Schizoaffective disorder, depressive type (principal); R45.851 Suicidal ideations; F17.210 Nicotine dependence, cigarettes, uncomplicated; Z71.6 Tobacco abuse counseling; F19.10 Other psychoactive substance abuse, uncomplicated; F10.10 Alcohol abuse, uncomplicated; Z20.822 Contact with and (suspected) exposure to COVID-19; Y90.3 Blood alcohol level of 60-79 mg/100 ml; Z91.51 Personal history of suicidal behavior
CPT/HCPCS: 36415; 80053; 80061; 80076; 80307; 81001; 81003; 82607; 82746; 83036; 83735; 84439; 84443; 85025; 87635; 93005; 99285

== ENCOUNTER → 2023-03-24 16:10 | Outpatient (BNV) | payer OTHER, SELFPAY | PROVIDERS: Admitting Provider Psychiatry & Neurology Psychiatry; Emergency Provider Internal Medicine; PCP Internal Medicine; Visit Provider Clinical Nurse Specialist Psychiatric/Mental Health, Adult | DX: F25.1 Schizoaffective disorder, depressive type (principal); F10.10 Alcohol abuse, uncomplicated; F19.10 Other psychoactive substance abuse, uncomplicated | CPT/HCPCS: 90792; 99231; 99232; 99238 ==